=== PATIENT | female | born 1960 | race African-American/Black ===

== ENCOUNTER 2024-04-03 12:26 | Emergency (ER) | payer MEDICAID, MEDICARE, OTHER ==
[~2024-04-03] VITALS: Ht 167.6 cm; Wt 66.2 kg
[2024-04-03 12:37] VITALS: O2SAT 100
[2024-04-03] MEDS: ACETAMINOPHEN 500MG TABLET PO ONE (13:52)
[2024-04-03] MEDS: LIDOCAINE 5% PATCH TOP SCH (15:26)
[2024-04-03] MEDS: AMLODIPINE 5MG TABLET PO ONE (15:26)
[2024-04-03] MEDS ORDERED: METH-653 MT (16:51)
[2024-04-03] MEDS ORDERED: AMLO5TAB88 MT (16:51)
[2024-04-03] MEDS ORDERED: NAPR-681 MT (16:51)
[2024-04-03 17:09] VITALS: BP 167/84; PULSE 71; RESP 16; TEMP 36.83628; O2SAT 100
== END 2024-04-03 17:18 | disposition home or self-care (01) ==
LOC: ER 12:50
DX: I10 Essential (primary) hypertension (principal); Z88.0 Allergy status to penicillin; Z76.0 Encounter for issue of repeat prescription
CPT/HCPCS: 99283